=== PATIENT | male | born 1970 | race Caucasian/White ===

== ENCOUNTER 2024-01-06 16:37 | Emergency (ER) | payer SELFPAY ==
[2024-01-06 16:42] VITALS: BP 137/89; PULSE 88; RESP 14; TEMP 36.4; O2SAT 98
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
[2024-01-06] MEDS: Amoxicillin 875/Clav. 125 TAB PO (17:04)
== END 2024-01-06 17:08 | disposition home or self-care (01) ==
LOC: ER 17:23
PROVIDERS: Emergency Provider Emergency Medicine
DX: S50.872A Other superficial bite of left forearm, initial encounter (principal); W50.3XXA Accidental bite by another person, initial encounter; Y93.F9 Activity, other caregiving
CPT/HCPCS: 99283